=== PATIENT | female | born 1950 | race Caucasian/White ===

== ENCOUNTER → 2017-03-30 | Outpatient (CLI) | payer MEDICARE ==
--- NOTE | 2017-04-01 13:12 | MM ---
Reason for exam: screening (asymptomatic). Last mammogram was performed 1 year and 4 months ago. History: Patient is postmenopausal. Family history of breast cancer in maternal grandmother at age 60. Benign MG stereo VAD BX LT of the left breast, January 07, 2015. Physical Findings: A clinical breast exam by your physician is recommended on an annual basis and results should be correlated with mammographic findings. MG 3D Screening Mammo W/Cad Bilateral CC and MLO view(s) were taken. Prior study comparison: December 05, 2015, bilateral MG screening mammo w CAD. May 07, 2015, left breast US breast LT. May 07, 2015, left breast MG diagnostic mammo LT w CAD. October 11, 2013, bilateral digital screening mammo w/CAD. There are scattered fibroglandular densities. No significant changes when compared with prior studies. ASSESSMENT: Benign, BI-RAD 2 RECOMMENDATION: Routine screening mammogram of both breasts in 1 year.
== END | disposition home or self-care (01) ==
LOC: RADMAMWWP 12:35
PROVIDERS: ATTEND Obstetrics & Gynecology
DX: Z12.31 Encounter for screening mammogram for malignant neoplasm of breast (principal)
CPT/HCPCS: 77063; G0202

== ENCOUNTER → 2018-05-11 | Outpatient (CLI) | payer MEDICARE ==
--- NOTE | 2018-05-12 10:02 | MM ---
Reason for exam: screening (asymptomatic). Last mammogram was performed 1 year and 1 month ago. History: Patient is postmenopausal. Family history of breast cancer in maternal grandmother at age 60. Benign MG stereo VAD BX LT of the left breast, January 07, 2015. Physical Findings: A clinical breast exam by your physician is recommended on an annual basis and results should be correlated with mammographic findings. MG 3D Screening Mammo W/Cad Bilateral CC and MLO view(s) were taken. Prior study comparison: March 30, 2017, bilateral MG 3d screening mammo w/cad. December 05, 2015, bilateral MG screening mammo w CAD. There are scattered fibroglandular densities. Previous mammotome biopsy in the left breast. No significant changes when compared with prior studies. ASSESSMENT: Benign, BI-RAD 2 RECOMMENDATION: Routine screening mammogram of both breasts in 1 year.
== END | disposition home or self-care (01) ==
LOC: RADMAMWWP 12:50
PROVIDERS: ATTEND Family Medicine
DX: Z12.31 Encounter for screening mammogram for malignant neoplasm of breast (principal)
CPT/HCPCS: 77063; 77067

== ENCOUNTER → 2019-03-28 | Outpatient (CLI) | payer MEDICARE ==
--- NOTE | 2019-03-28 11:08 | US ---
EXAMINATION TYPE: US thyroid st tissue head/neck DATE OF EXAM: 03/28/2019 COMPARISON: 07/16/2013 CLINICAL HISTORY: 68-year-old female Z86.35 HX thyroid nodule. TECHNIQUE: Multiple sonographic images of the thyroid gland are obtained. FINDINGS: GLAND SIZE: Right Lobe: 5.4 x 1.4 x 1.8 cm Overall Parenchyma: heterogenous Left Lobe: 4.5 x 1.6 x 1.4 cm Overall Parenchyma: heterogeneous Isthmus Thickness: 0.3 cm NODULES RIGHT: # of nodules measured on right: 2 1. 0.6 X 0.3 x 0.5 cm colloid cyst at the upper pole with well-defined margins. This nodule is wid er than tall and shows no intranodular vascularity. Prior size: 0.6 x 0.4 x 0.6 cm 2. 0.4 X 0.3 x 0.4 cm hypoechoic mixed nodule at the mid pole with poorly defined margins. This nod ule is wider than tall and shows intranodular vascularity. Prior size: Not previously visualized LEFT: # of nodules measured on left: 1 1. 0.6 X 0.3 x 0.5 cm cyst at the mid pole with well-defined margins; . This nodule is wider than tall and shows no intranodular vascularity. Prior size: 0.4 x 0.2 x 0.4 cm ISTHMUS: # of nodules measured in the isthmus: 0 Bilateral neck scanned, no evidence of lymphadenopathy. IMPRESSION: 1. Borderline to mild thyromegaly. 2. A 4 mm mixed nodule at the right midpole appears new from 2012. Follow-up can be performed. 3. A benign cyst within each lobe measuring up to 6 mm.
== END | disposition home or self-care (01) ==
LOC: RADUSWWP 09:14
PROVIDERS: ATTEND Family Medicine
DX: E04.1 Nontoxic single thyroid nodule (principal)
CPT/HCPCS: 76536

== ENCOUNTER → 2019-06-04 | Outpatient (CLI) | payer MEDICARE ==
--- NOTE | 2019-06-05 09:02 | MM ---
Reason for exam: screening (asymptomatic). Last mammogram was performed 1 year and 1 month ago. History: Patient is postmenopausal. Family history of breast cancer in maternal grandmother at age 60. Benign MG stereo VAD BX LT of the left breast, January 07, 2015. Took hormonal contraceptives for 10 years. Physical Findings: A clinical breast exam by your physician is recommended on an annual basis and results should be correlated with mammographic findings. MG 3D Screening Mammo W/Cad Bilateral CC and MLO view(s) were taken. Prior study comparison: May 11, 2018, bilateral MG 3d screening mammo w/cad. March 30, 2017, bilateral MG 3d screening mammo w/cad. There are scattered fibroglandular densities. No significant changes when compared with prior studies. ASSESSMENT: Benign, BI-RAD 2 RECOMMENDATION: Routine screening mammogram of both breasts in 1 year.
== END | disposition home or self-care (01) ==
LOC: RADMAMWWP 12:31
PROVIDERS: ATTEND Family Medicine
DX: Z12.31 Encounter for screening mammogram for malignant neoplasm of breast (principal)
CPT/HCPCS: 77063; 77067

== ENCOUNTER → 2020-06-26 | Outpatient (CLI) | payer MEDICARE ==
--- NOTE | 2020-06-26 14:18 | US ---
EXAMINATION TYPE: US thyroid st tissue head/neck DATE OF EXAM: 06/26/2020 COMPARISON: US March 28, 2019 CLINICAL HISTORY: E04.1 nontoxic single nodule. F/U nodules GLAND SIZE: Right Lobe: 4.8 x 1.7 x 1.5 cm Overall Parenchyma: heterogenous Left Lobe: 4.0 x 1.8 x 1.7 cm Overall Parenchyma: heterogeneous Isthmus Thickness: 0.3 cm NODULES RIGHT: # of nodules measured on right: 2 1. 0.6 X 0.4 x 0.5 cm cystic nodule at the upper pole with well-defined margins; This nodule is wi sarah than tall and shows intranodular vascularity. Prior size: 0.6 x 0.3 x 0.5 cm 2. 0.4 X 0.3 x 0.4 cm hypoechoic solid nodule at the mid pole with poorly defined margins; This nod ule is wider than tall and shows intranodular vascularity. Prior size: 0.4 x 0.3 x 0.4 cm LEFT: # of nodules measured on left: 1 1. 0.4 X 0.3 x 0.4 cm hypoechoic solid nodule at the upper pole with well-defined margins; This no dule is wider than tall and shows intranodular vascularity. Prior size: Not visualized on prior Bilateral neck scanned, no evidence of lymphadenopathy. Stable sub-centimeter nodules on right, new s ub-centimeter nodule left, multiple colloid cysts lower pole. Redemonstration of heterogeneous normal-sized thyroid with scattered bilateral small subcentimeter no dules. IMPRESSION: As above. No new greater than 1 cm or suspicious enlarging nodules identified.
--- NOTE | 2020-06-30 09:59 | MM ---
Reason for exam: screening (asymptomatic). Last mammogram was performed 1 year and 1 month ago. History: Patient is postmenopausal. Family history of breast cancer in maternal grandmother at age 60. Benign MG stereo VAD BX LT of the left breast, January 07, 2015. Took hormonal contraceptives for 10 years. Physical Findings: A clinical breast exam by your physician is recommended on an annual basis and results should be correlated with mammographic findings. MG 3D Screening Mammo W/Cad Bilateral CC and MLO view(s) were taken. Prior study comparison: June 04, 2019, bilateral MG 3d screening mammo w/cad. May 11, 2018, bilateral MG 3d screening mammo w/cad. The breast tissue is heterogeneously dense. This may lower the sensitivity of mammography. Finding: There is a 5 mm equal density (isodense), oval mass in the lower inner quadrant of the right breast. Previous mammotome biopsy in the left breast. There is a chronic nodularity in the right breast. ASSESSMENT: Incomplete: need additional imaging evaluation, BI-RAD 0 RECOMMENDATION: Special view mammogram of the right breast. If lesion persists on supplemental views, image directed ultrasound is recommended. [facility] will attempt to contact patient to return for supplemental views and ultrasound if indicated.
== END | disposition home or self-care (01) ==
LOC: RADUSWWP 13:13
PROVIDERS: ATTEND Family Medicine
DX: E04.1 Nontoxic single thyroid nodule (principal); Z12.31 Encounter for screening mammogram for malignant neoplasm of breast
CPT/HCPCS: 76536; 77063; 77067

== ENCOUNTER → 2020-07-11 | Outpatient (CLI) | payer MEDICARE ==
--- NOTE | 2020-07-11 13:00 | MM ---
Reason for exam: additional evaluation requested from abnormal screening. Last mammogram was performed less than 1 month ago. History: Patient is postmenopausal. Family history of breast cancer in maternal grandmother at age 60. Benign MG stereo VAD BX LT of the left breast, January 07, 2015. Took hormonal contraceptives for 10 years. Physical Findings: Nurse did not find any significant physical abnormalities on exam. MG 3D Work Up W/Cad RT Spot compression CC, spot compression MLO, and LM view(s) were taken of the right breast. Prior study comparison: June 26, 2020, bilateral MG 3d screening mammo w/cad. June 04, 2019, bilateral MG 3d screening mammo w/cad. Finding: There is a 3 mm equal density (isodense), round mass in the lower inner quadrant of the right breast. These results were verbally communicated with the patient and result sheet given to the patient on 07/11/20. ASSESSMENT: Incomplete: need additional imaging evaluation, BI-RAD 0 RECOMMENDATION: Ultrasound of the right breast.
--- NOTE | 2020-07-11 13:01 | USB ---
Reason for exam: additional evaluation requested from abnormal screening. History: Patient is postmenopausal. Family history of breast cancer in maternal grandmother at age 60. Benign MG stereo VAD BX LT of the left breast, January 07, 2015. Took hormonal contraceptives for 10 years. US Breast Workup Limited RT Right limited breast ultrasound including focal area of concern, retroareolar and axilla demonstrates a 0.3 x 0.3 x 0.2cm cystic lesion at 5 o'clock. These results were verbally communicated with the patient and result sheet given to the patient on 07/11/20. ASSESSMENT: Suspicious, BI-RAD 4 RECOMMENDATION: Ultrasound core biopsy of the right breast. Called Dr. Story office with mammographic findings and has scheduled an appointment for the patient for 07/11/20 at 4:[address] Blackmon. Biopsy scheduled for 07/29/20 at 1:00. PRELIMINARY REPORT CALLED AND FAXED TO DR. BLACKMON ON 07/11/20.
== END | disposition home or self-care (01) ==
LOC: RADMAMWWP 09:19
PROVIDERS: ATTEND Family Medicine
DX: R92.8 Other abnormal and inconclusive findings on diagnostic imaging of breast (principal)
CPT/HCPCS: 77065; 76642; G0279; 77061

== ENCOUNTER → 2020-07-11 | Outpatient (CLI) | payer MEDICARE ==
[2020-07-11 16:47] VITALS: BP 151/81; PULSE 73; RESP 16; TEMP 98.2
--- NOTE | 2020-07-11 16:55 | P.GSHP ---
History of Present Illness H&P Date: 07/11/20 Chief Complaint: abnormal ultrasound of the right breast Loretta is 69 year old white female seen in consultation for Tosin Mccoy secondary to routine mammogram which revealed an area of concern in the right breast. [place] [address] this revealed a 5 mm low-density mass in the lower inner quadrant of the right breast. Was recommended she have a right breast diagnostic mammogram. This was performed and [id number] and this revealed a 3 mm density in the lower inner quadrant of the right breast for which ultrasound was recommended. Ultrasound was consistent with a cystic lesion at this area was considered BIRADS 4 suspicious an ul trasound core biopsy was recommended. The patient denies any lumps masses nodules or pain in her breast. She has had no nipple discharge of concern in her breast. She has not had any recent trauma or infection in the breast. She had a stereotactic core biopsy of the left breast in 2014. Family History: maternal grandmother: breast cancer father: prostatte and bladder cancer mother: skin cancer Hormonal history: Menarche: 15 , breast fed: yes, age at first : 25 menopause: 55 BCP: 8 years hormones: none Surgical history: D&C Appendectomy tonsillectomy Medical History: high cholesterol urgency of urination Social History: smoke: none alcohol: none drugs: none - Constitutional Constitutional: Denies chills, Denies fever - EENT Eyes: denies blurred vision, denies pain Ears: deny: decreased hearing, tinnitus Ears, nose, mouth and throat: Denies headache, Denies sore throat - Breasts Breasts: bilateral: as per HPI - Cardiovascular Cardiovascular: Denies chest pain, Denies shortness of breath - Respiratory Respiratory: Denies cough, Denies 7 - Gastrointestinal Comment: IBS Gastrointestinal: Denies abdominal pain, Denies diarrhea, Denies nausea, Denies vomiting - Genitourinary (Female) Genitourinary: Reports kidney stones, Denies dysuria, Denies hematuria - Menstruation Menstruation: Reports postmenopausal - Musculoskeletal Comment: arthritis of back - Integumentary Integumentary: Denies pruritus, Denies rash - Neurological Neurological: Denies numbness, Denies weakness - Psychiatric Psychiatric: Denies anxiety, Denies depression - Endocrine Endocrine: Denies fatigue, Denies weight change - Hematologic/Lymphatic Comment: none, baby aspirin - Allergic/Immunologic Allergic/Immunologic: Reports as per HPI Medications and Allergies Allergies Allergy/AdvReac Type Severity Reaction Status Date / Time Penicillins Allergy Swelling Verified 12/30/14 15:15 Surgical - Exam BMI 27.3 - General well developed, well nourished, no distress - Eyes normal ocular movement - ENT no hearing loss, no congestion - Neck no masses, trachea midline - Respiratory normal respiratory effort, clear to auscultation - Cardiovascular Rhythm: regular Heart Sounds: normal: S1, S2 - Abdomen Abdomen: soft, non tender, no guarding, no rigid, no rebound - Integumentary normal turgor - Neurologic no disoriented, no combative - Musculoskeletal normal gait, normal posture - Psychiatric oriented to time, oriented to person, oriented to place, speech is normal, memory intact breast exam: BRA: 42C inspection: bilateral grade 3 ptosis Palpation: Right breast: Multi-positional exam fibrocystic changes, no dominant masses or nodules of concern Right axilla: No adenopathy of concern Left breast: Multi-positional exam fibrocystic changes, no dominant masses or nodules of concern Left axilla: No adenopathy of concern Results Mammogram and ultrasound results reviewed Assessment and Plan Assessment: Impression: 1. Radiographic abnormality right breast 2. Fibrocystic changes of the breast 3. Family history of cancer 4. High cholesterol 5. IBS Plan: 1. Ultrasound-guided core biopsy right breast 2. Follow-up after ultrasound-guided core biopsy Risk and benefits of the procedure discussed with the patient she understands and wishes to proceed. CC: Judy Mccoy encounter 30 minutes, > 50% of time in planning and counselling
== END | disposition home or self-care (01) ==
LOC: WWCWWP 15:49
PROVIDERS: ATTEND Surgery
DX: R92.8 Other abnormal and inconclusive findings on diagnostic imaging of breast (principal)
CPT/HCPCS: 99204

== ENCOUNTER → 2020-07-29 | Day surgery (SDC) | payer MEDICARE ==
[2020-07-29 12:03] VITALS: BP 156/84; PULSE 66; RESP 18; TEMP 98.3
--- NOTE | 2020-07-29 13:29 | USB ---
EXAMINATION TYPE: US discontinued breast bx RT DATE OF EXAM: 07/29/2020 CLINICAL HISTORY: R92.8 abnormal mammogram. Abnormal ultrasound TECHNIQUE: Ultrasound guided fine-needle aspiration and/or core biopsy of right breast. COMPARISON: Prior mammogram and ultrasound July 11, 2020 and older mammograms. FINDINGS: The procedure of ultrasound guided core biopsy was explained to the patient. Benefits, alt ernatives, and risks were discussed. An informed consent was then obtained. The patient was placed in supine positioning for imaging and for the procedure. Preprocedure ultraso und redemonstrates a 3 mm round anechoic lesion 5:00 zone BC in the right breast. Lesion is well-circ umscribed with documentation of increased through transmission and no vascularity. Findings are consi stent with simple cyst. No suspicious features identified to warrant sampling at this time. Above dis cussed with patient. Patient agreeable to canceled biopsy and short-term follow-up. The patient was kept in the radiology department for short stay after the canceled procedure and then discharged home in stable condition. IMPRESSION: Canceled ultrasound guided sampling of area of concern in the right breast, full patholog y results to follow. BI-RADS 3 probable benign findings. Recommendation: Precautionary diagnostic right breast mammogram and ultrasound follow-up in 6 months time.
== END ==
LOC: RADUSWWP 11:51
PROVIDERS: ATTEND Surgery
DX: R92.8 Other abnormal and inconclusive findings on diagnostic imaging of breast (principal); Z53.8 Procedure and treatment not carried out for other reasons

== ENCOUNTER → 2021-04-28 | Outpatient (CLI) | payer MEDICARE ==
--- NOTE | 2021-04-28 11:01 | USB ---
Reason for exam: follow-up at short interval from prior study. History: Patient is postmenopausal. Family history of breast cancer in maternal grandmother at age 60. US discontinued breast bx RT of the right breast, July 29, 2020. Benign MG stereo VAD BX LT of the left breast, January 07, 2015. Took hormonal contraceptives for 10 years. Physical Findings: Nurse did not find any significant physical abnormalities on exam. US Breast Limited RT Right limited breast ultrasound including focal area of concern, retroareolar and axilla demonstrates no cystic or solid lesion seen. These results were verbally communicated with the patient and result sheet given to the patient on 04/28/21. ASSESSMENT: Negative, BI-RAD 1 RECOMMENDATION: Return to routine screening mammogram schedule for both breasts. Back on schedule.
== END | disposition home or self-care (01) ==
LOC: RADUSWWP 10:11
PROVIDERS: ATTEND Surgery
DX: R92.8 Other abnormal and inconclusive findings on diagnostic imaging of breast (principal); Z80.3 Family history of malignant neoplasm of breast; Z78.0 Asymptomatic menopausal state

== ENCOUNTER → 2021-07-01 | Outpatient (CLI) | payer MEDICARE ==
--- NOTE | 2021-07-06 08:49 | MM ---
Reason for exam: screening (asymptomatic). Last mammogram was performed 1 year ago. History: Patient is postmenopausal. Family history of breast cancer in maternal grandmother at age 60. US discontinued breast bx RT of the right breast, July 29, 2020. Benign MG stereo VAD BX LT of the left breast, January 07, 2015. Took hormonal contraceptives for 10 years. Physical Findings: A clinical breast exam by your physician is recommended on an annual basis and results should be correlated with mammographic findings. MG 3D Screening Mammo W/Cad Bilateral CC and MLO view(s) were taken. Prior study comparison: July 11, 2020, right breast MG 3d work up w/cad RT. June 26, 2020, bilateral MG 3d screening mammo w/cad. There are scattered fibroglandular densities. Previous mammotome biopsy in the left breast. Stable central anterior asymmetry on the right CC view. No significant changes when compared with prior studies. ASSESSMENT: Benign, BI-RAD 2 RECOMMENDATION: Routine screening mammogram of both breasts in 1 year.
== END | disposition home or self-care (01) ==
LOC: RADMAMWWP 15:59
PROVIDERS: ATTEND Surgery
DX: Z12.31 Encounter for screening mammogram for malignant neoplasm of breast (principal); Z78.0 Asymptomatic menopausal state; Z80.3 Family history of malignant neoplasm of breast
CPT/HCPCS: 77063; 77067

== ENCOUNTER → 2021-07-17 | Outpatient (CLI) | payer MEDICARE ==
[2021-07-17 08:34] VITALS: BP 143/86; PULSE 63; RESP 18; TEMP 98.1
--- NOTE | 2021-07-17 08:41 | P.PN ---
Subjective Progress Note Date: 07/17/21 Principal diagnosis: fibrocystic breast changes Loretta is 70 year old white female seen in consultation for Tosin Mccoy secondary to routine mammogram which revealed an area of concern in the right breast. [place] [id number] this revealed a 5 mm low-density mass in the lower inner quadrant of the right breast. Was recommended she have a right breast diagnostic mammogram. This was performed and [address]14 and this revealed a 3 mm density in the lower inner quadrant of the right breast for which ultrasound was recommended. Ultrasound was consistent with a cystic lesion at this area was considered BIRADS 4 suspicious an ultrasound core biopsy was recommended. The patient denies any lumps masses nodules or pain in her breast. She has had no nipple discharge of concern in her breast. She has not had any recent trauma or infection in the breast. She had a stereotactic core biopsy of the left breast in 2014. A biopsy was scheduled for 98, however at the time of the attempted biopsy no suspicious features were identified to warrant sampling. The biopsy was therefore canceled. The patient presents today for breast examination. [place] [address] which was benign BIRADS 2. Additionally and 6820 she had an ultrasound of the right breast which was negative BIRADS 1. At this time she does not complain of any new lumps masses or nodules of concern in either breast. She is not complaining of any abnormal nipple discharge or skin changes. Family History: maternal grandmother: breast cancer father: prostatte and bladder cancer mother: skin cancer Hormonal history: Menarche: 15 , breast fed: yes, age at first : 25 menopause: 55 BCP: 8 years hormones: none Surgical history: D&C Appendectomy tonsillectomy Medical History: high cholesterol urgency of urination Social History: smoke: none alcohol: none drugs: none - Constitutional Constitutional: Denies chills, Denies fever - EENT Eyes: denies blurred vision, denies pain Ears: deny: decreased hearing, tinnitus Ears, nose, mouth and throat: Denies headache, Denies sore throat - Breasts Breasts: bilateral: as per HPI - Cardiovascular Cardiovascular: Denies chest pain, Denies shortness of breath - Respiratory Respiratory: Denies coug - Gastrointestinal Comment: IBS Gastrointestinal: Denies abdominal pain, Denies diarrhea, Denies nausea, Denies vomiting - Genitourinary (Female) Genitourinary: Reports kidney stones, Denies dysuria, Denies hematuria - Menstruation Menstruation: Reports postmenopausal - Musculoskeletal Comment: arthritis of back - Integumentary Integumentary: Denies pruritus, Denies rash - Neurological Neurological: Denies numbness, Denies weakness - Psychiatric Psychiatric: Denies anxiety, Denies depression - Endocrine Endocrine: Denies fatigue, Denies weight change - Hematologic/Lymphatic Comment: none, baby aspirin - Allergic/Immunologic Allergic/Immunologic: Reports as per HPI Objective - Constitutional General appearance: Present: cooperative - EENT Eyes: Present: EOMI ENT: Present: hearing grossly normal - Respiratory Respiratory: bilateral: CTA - Cardiovascular Rhythm: regular Heart sounds: normal: S1, S2 - Gastrointestinal General gastrointestinal: Present: soft - Integumentary Integumentary: Present: normal turgor - Musculoskeletal Musculoskeletal: Present: gait normal - Psychiatric Psychiatric: Present: A&O x's 3, appropriate affect, intact judgment & insight - Additional findings Additional findings: breast exam: BRA: 42C inspection: Bilateral grade 3 ptosis; right breast slightly larger than left breast Palpation: Right breast: Multiple position or exam fibrocystic changes no dominant masses or nodules of concern Right axilla: No adenopathy of concern Left breast: Multiple positional exam fibrocystic changes no dominant masses or nodules of concern Left axilla: No adenopathy of concern Assessment and Plan Assessment: Impression: 1. Bilateral fibrocystic changes 2. Recent bilateral mammogram and ultrasound right breast benign BIRADS 2, and (BIRADS 1 ultrasound) Plan: 1. Repeat bilateral mammogram in 1 year with physician exam at that time CC: Nadia Ferrell N.P.
== END ==
LOC: WWCWWP 08:20
PROVIDERS: ATTEND Surgery
DX: N60.11 Diffuse cystic mastopathy of right breast (principal); N60.12 Diffuse cystic mastopathy of left breast; N63.14 Unspecified lump in the right breast, lower inner quadrant; E78.00 Pure hypercholesterolemia, unspecified; Z88.0 Allergy status to penicillin; Z88.2 Allergy status to sulfonamides

== ENCOUNTER → 2022-07-05 | Outpatient (CLI) | payer MEDICARE ==
--- NOTE | 2022-07-06 10:48 | MM ---
Reason for Exam: Screening (asymptomatic). Last screening mammogram was performed 12 month(s) ago. Patient History: Menarche at age 15. First Full-Term at age 25. Postmenopausal. Patient used Hormonal Contraceptives for 10 years. 01/07/2015, Benign Core Biopsy on the left side. 07/29/2020, US discontinued breast bx RT on the right side. Maternal grandmother had breast cancer, age 60. Risk Values: [place] 5 year model risk: 2.1%. NCI Lifetime model risk: 5.8%. Prior Study Comparison: 06/26/2020 Bilateral Screening Mammogram, [facility]. 07/11/2020 Right Diagnostic Mammogram, [facility]. 07/01/2021 Bilateral Screening Mammogram, [facility]. Tissue Density: The breast tissue is heterogeneously dense. This may lower the sensitivity of mammography. Findings: Analyzed By CAD. There is no suspicious group of microcalcifications or new suspicious mass in either breast. Overall Assessment: Benign, BI-RAD 2 Management: Screening Mammogram of both breasts in 1 year. A clinical breast exam by your physician is recommended on an annual basis and results should be correlated with mammographic findings. Electronically signed and approved by: Darin Landry M.D. Radiologis
== END | disposition home or self-care (01) ==
LOC: RADMAMWWP 10:52
PROVIDERS: ATTEND Surgery
DX: Z12.31 Encounter for screening mammogram for malignant neoplasm of breast (principal); Z78.0 Asymptomatic menopausal state; Z80.3 Family history of malignant neoplasm of breast
CPT/HCPCS: 77063; 77067

== ENCOUNTER → 2023-07-07 | Outpatient (CLI) | payer MEDICARE ==
--- NOTE | 2023-07-08 08:33 | MM ---
Reason for Exam: Screening (asymptomatic). Last screening mammogram was performed 12 month(s) ago. Patient History: Menarche at age 15. First Full-Term at age 25. Postmenopausal. Patient used Hormonal Contraceptives for 10 years. 01/07/2015, Benign Core Biopsy on the left side. 07/29/2020, US discontinued breast bx RT on the right side. Maternal grandmother had breast cancer, age 60. Risk Values: [place] 5 year model risk: 2.1%. NCI Lifetime model risk: 5.5%. Prior Study Comparison: 07/11/2020 Right Diagnostic Mammogram, [facility]. 07/01/2021 Bilateral Screening Mammogram, [facility]. 07/05/2022 Bilateral MG 3D screening mammo w/cad, [facility]. Tissue Density: There are scattered fibroglandular densities. Findings: Analyzed By CAD. Pattern appears symmetrical and stable. 8 core markers within the left breast. No suspicious groups of microcalcifications, spiculated or lobular masses, architectural distortion or other secondary signs of malignancy are mammographically apparent. Overall Assessment: Benign, BI-RAD 2 Management: Screening Mammogram of both breasts in 1 year. A negative mammogram report should not preclude additional follow up of suspicious palpable abnormalities. Patient should continue monthly self breast exam. A clinical breast exam by your physician is recommended on an annual basis and results should be correlated with mammographic findings. Electronically signed and approved by: Shaquille Frias D.O. Radiologis
== END | disposition home or self-care (01) ==
LOC: RADMAMWWP 10:43
PROVIDERS: ATTEND Surgery
DX: Z12.31 Encounter for screening mammogram for malignant neoplasm of breast (principal); Z78.0 Asymptomatic menopausal state; Z80.3 Family history of malignant neoplasm of breast
CPT/HCPCS: 77063; 77067

== ENCOUNTER → 2023-10-20 | Outpatient (CLI) | payer MEDICARE ==
--- NOTE | 2023-10-20 14:10 | P.PN ---
Subjective Progress Note Date: 10/20/23 fibrocystic breast changes 07-09-22 Loretta is 71 year old white female seen in consultation for Tosin Mccoy secondary to routine mammogram which revealed an area of concern in the right breast. She had a bilateral mammogram performed on 8620 this revealed a 5 mm low-density mass in the lower inner quadrant of the right breast. Was recommended she have a right breast [place] [address] and this revealed a 3 mm density in the lower inner quadrant of the right breast for which ultrasound was recommended. Ultrasound was consistent with a cystic lesion at this area was considered BIRADS 4 suspicious an ultrasound core biopsy was recommended. The patient denies any lumps masses nodules or pain in her breast. She has had no nipple discharge of concern in her breast. She has not had any recent trauma or infection in the breast. She had a stereotactic core biopsy of the left breast in 2014. A biopsy was scheduled for 98, however at the time of the attempted biopsy no suspicious features were identified to warrant sampling. The biopsy was therefore canceled. The patient had a bilateral mammogram on 07-05-22 which was BIRAD 2, no lesions of concern in either breast noted. At this time she does not complain of any new lumps masses or nodules of concern in either breast. She is not complaining of any abnormal nipple discharge or skin changes. 10-20-23 The patient had a bilateral mammogram on 07-07-23 which was BIRAD 2. She is not complaining of any lumps masses or nodules of concern in either breast. Family History: maternal grandmother: breast cancer father: prostate and bladder cancer mother: skin cancer Hormonal history: Menarche: 15 , breast fed: yes, age at first : 25 menopause: 55 BCP: 8 years hormones: none Surgical history: D&C Appendectomy tonsillectomy Medical History: high cholesterol urgency of urination Social History: smoke: none alcohol: none drugs: none - Constitutional Constitutional: Denies chills, Denies fever - EENT Eyes: denies blurred vision, denies pain Ears: deny: decreased hearing, tinnitus Ears, nose, mouth and throat: Denies headache, Denies sore throat - Breasts Breasts: bilateral: as per HPI - Cardiovascular Cardiovascular: Denies chest pain, Denies shortness of breath - Respiratory Respiratory: Denies coug - Gastrointestinal Comment: IBS Gastrointestinal: Denies abdominal pain, Denies diarrhea, Denies nausea, Denies vomiting - Genitourinary (Female) Genitourinary: Reports kidney stones, Denies dysuria, Denies hematuria - Menstruation Menstruation: Reports postmenopausal - Musculoskeletal Comment: arthritis of back - Integumentary Integumentary: Denies pruritus, Denies rash - Neurological Neurological: Denies numbness, Denies weakness - Psychiatric Psychiatric: Denies anxiety, Denies depression - Endocrine Endocrine: Denies fatigue, Denies weight change - Hematologic/Lymphatic Comment: none, baby aspirin - Allergic/Immunologic Allergic/Immunologic: Reports as per HPI Objective - Constitutional General appearance: Present: cooperative - EENT Eyes: Present: EOMI - Neck Neck: Present: normal ROM - Respiratory Respiratory: bilateral: CTA - Cardiovascular Rhythm: regular Heart sounds: normal: S1, S2 - Integumentary Integumentary: Present: normal turgor - Musculoskeletal Musculoskeletal: Present: gait normal - Psychiatric Psychiatric: Present: A&O x's 3, appropriate affect, intact judgment & insight - Additional findings Additional findings: Breast Exam: BRA; 42C Inspection: Right breast slightly larger than left breast, bilateral grade 3 ptosis Palpation: Right breast: Multi-positional exam fibrocystic changes no dominant masses or nodules of concern Right axilla: No adenopathy of concern Left Breast: Multiple positional exam fibrocystic changes no dominant masses or nodules of concern Left axilla: No adenopathy of concern Assessment and Plan Assessment: Impression: Fibrocystic breast changes bilateral mammogram on 07-07-23 BIRAD 2 Plan: Bilateral mammogram in 1 year with physician exam at that time CC: Nadia Ferrell
[2023-10-20 14:11] VITALS: BP 147/97; PULSE 72; RESP 18; TEMP 98.2
== END ==
LOC: WWCWWP 13:47
PROVIDERS: ATTEND Surgery
DX: Z12.31 Encounter for screening mammogram for malignant neoplasm of breast (principal); N60.11 Diffuse cystic mastopathy of right breast; N63.14 Unspecified lump in the right breast, lower inner quadrant; E78.00 Pure hypercholesterolemia, unspecified; Z80.3 Family history of malignant neoplasm of breast; Z88.0 Allergy status to penicillin; Z88.2 Allergy status to sulfonamides; Z88.1 Allergy status to other antibiotic agents

== ENCOUNTER → 2025-04-29 | Outpatient (CLI) | payer MEDICARE ==
--- NOTE | 2025-04-29 11:33 | MM ---
Reason for Exam: Screening (asymptomatic). Last mammogram was performed 1 year(s) and 10 month(s) ago. Patient History: Menarche at age 15. First Full-Term at age 25. Postmenopausal. Patient used Hormonal Contraceptives for 10 years. 01/07/2015, Benign Core Biopsy on the left side. 07/29/2020, US discontinued breast bx RT on the right side. Maternal grandmother had breast cancer, age 60. Risk Values: Belem 5 year model risk: 2.1%. NCI Lifetime model risk: 4.9%. Prior Study Comparison: 07/01/2021 Bilateral Screening Mammogram, [facility]. 07/05/2022 Bilateral MG 3D screening mammo w/cad, [facility]. 07/07/2023 Bilateral MG 3D screening mammo w/cad, [facility]. Tissue Density: There are scattered areas of fibroglandular density. Findings: Analyzed By CAD. Mammotome biopsy clip in the left breast outer aspect is present. There is no suspicious group of microcalcifications or new suspicious mass in either breast. Overall Assessment: Benign, BI-RAD 2 Management: Screening Mammogram of both breasts in 1 year. . Patient should continue monthly self-breast exams. A clinical breast exam by your physician is recommended on an annual basis. This exam should not preclude additional follow-up of suspicious palpable abnormalities. Note on Belem scores and lifetime risk: 1. A Belem score greater than 3% is considered moderate risk. If this is the case, consider specialist referral to assess eligibility for a risk reducing agent. 2. If overall lifetime risk for the development of breast cancer is 20% or higher, the patient may qualify for future screening with alternating mammogram and breast MRI. [facility], , 04/29/2025 11:30 AM. Electronically signed and approved by: Kentrell Barnett M.D.
== END | disposition home or self-care (01) ==
LOC: RADMAMWWP 10:44
PROVIDERS: ATTEND Surgery
DX: Z12.31 Encounter for screening mammogram for malignant neoplasm of breast (principal); R92.323 Mammographic fibroglandular density, bilateral breasts; Z78.0 Asymptomatic menopausal state; Z80.3 Family history of malignant neoplasm of breast; Z92.0 Personal history of contraception
CPT/HCPCS: 77063; 77067

== ENCOUNTER → 2025-05-31 | Outpatient (CLI) | payer MEDICARE ==
[2025-05-31 11:02] VITALS: BP 153/86; PULSE 71; RESP 17; TEMP 98.1
--- NOTE | 2025-05-31 11:12 | P.PN ---
Subjective Progress Note Date: 05/31/25 Principal diagnosis: fibrocystic breast disease 10/20/23 fibrocystic breast changes 07-09-22 Loretta is 71 year old white female seen in consultation for Tosin Mccoy secondary to routine mammogram which revealed an area of concern in the right breast. She had a bilateral mammogram performed on 8620 this revealed a 5 mm low-density mass in the lower inner quadrant of the right breast. Was recommended she have a right breast diagnostic [place]ogram[place] [address] and this revealed a 3 mm density in the lower inner quadrant of the right breast for which ultrasound was recommended. Ultrasound was consistent with a cystic lesion at this area was considered BIRADS 4 suspicious an ultrasound core biopsy was recommended. The patient denies any lumps masses nodules or pain in her breast. She has had no nipple discharge of concern in her breast. She has not had any recent trauma or infection in the breast. She had a stereotactic core biopsy of the left breast in 2014. A biopsy was scheduled for 9819, however at the time of the attempted biopsy no suspicious features were identified to warrant sampling. The biopsy was therefore canceled. The patient had a bilateral mammogram on 07-05-22 which was BIRAD 2, no lesions of concern in either breast noted. At this time she does not complain of any new lumps masses or nodules of concern in either breast. She is not complaining of any abnormal nipple discharge or skin changes. 10-20-23 The patient had a bilateral mammogram on 07-07-23 which was BIRAD 2. She is not complaining of any lumps masses or nodules of concern in either breast. 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 She had 5 chemotherapies and a 6 hour surgery, and resected the tumor. This was followed by three more chemotheripies. She is presently on letrazole and on eliquis BID Family History: maternal grandmother: breast cancer father: prostate and bladder cancer mother: skin cancer Hormonal history: Menarche: 15 , breast fed: yes, age at first : 25 menopause: 55 BCP: 8 years hormones: none Surgical history: D&C Appendectomy tonsillectomy debulking for ovarian cacner stage 4 Medical History: high cholesterol urgency of urination pulmonary emboli Social History: smoke: none alcohol: none drugs: none - Constitutional Constitutional: Denies chills, Denies fever - EENT Eyes: denies blurred vision, denies pain Ears: deny: decreased hearing, tinnitus Ears, nose, mouth and throat: Denies headache, Denies sore throat - Breasts Breasts: bilateral: as per HPI - Cardiovascular Cardiovascular: Denies chest pain, Denies shortness of breath - Respiratory Respiratory: Denies coug - Gastrointestinal Comment: IBS Gastrointestinal: Denies abdominal pain, Denies diarrhea, Denies nausea, Denies vomiting - Genitourinary (Female) Genitourinary: Reports kidney stones, Denies dysuria, Denies hematuria - Menstruation Menstruation: Reports postmenopausal - Musculoskeletal Comment: arthritis of back - Integumentary Integumentary: Denies pruritus, Denies rash - Neurological Neurological: Denies numbness, Denies weakness - Psychiatric Psychiatric: Denies anxiety, Denies depression - Endocrine Endocrine: Denies fatigue, Denies weight change - Hematologic/Lymphatic Comment: none, baby aspirin - Allergic/Immunologic Allergic/Immunologic: Reports as per HPI Objective - Vital Signs Vital signs: Intake & Output 05/30/25 05/31/25 05/31/25 18:59 06:59 18:59 Weight 76.204 kg - Constitutional General appearance: Present: cooperative - EENT Eyes: Present: EOMI ENT: Present: hearing grossly normal - Neck Neck: Present: normal ROM - Respiratory Respiratory: bilateral: CTA - Cardiovascular Rhythm: regular Heart sounds: normal: S1, S2 - Integumentary Integumentary: Present: normal turgor - Musculoskeletal Musculoskeletal: Present: gait normal - Psychiatric Psychiatric: Present: A&O x's 3, appropriate affect, intact judgment & insight - Additional findings Additional findings: Breast Exam: BRA; 42C Inspection: Right breast slightly larger than left breast, bilateral grade 3 ptosis Palpation: Right breast: Multi-positional exam fibrocystic changes no dominant masses or nodules of concern Right axilla: No adenopathy of concern Left Breast: Multiple positional exam fibrocystic changes no dominant masses or nodules of concern Left axilla: No adenopathy of concern Assessment and Plan Assessment: Impression: Fibrocystic breast changes bilateral mammogram on 6-9-25 BIRAD 2 last year treated for stage 4 ovarian cancer Plan: Bilateral mammogram in 1 year with physician exam at that time follow with [facility] CC: Nadia Ferrell
== END ==
LOC: WWCWWP 10:43
PROVIDERS: ATTEND Surgery
DX: C56.9 Malignant neoplasm of unspecified ovary (principal); N60.11 Diffuse cystic mastopathy of right breast; Z88.0 Allergy status to penicillin; Z88.1 Allergy status to other antibiotic agents; Z88.2 Allergy status to sulfonamides